=== PATIENT | male | born 1970 | race African-American/Black ===

== ENCOUNTER 2016-09-12 11:30 | Day surgery (SDC) | payer BC, MEDICARE ==
--- NOTE | ~2016-09-12 | OP ---
Record Of Operation [facility] [address] [place] [address] NAME: TACHO RAMOS JR : [id number] STATUS : [facility]#: [id number] AGE: 46 ADM/REG DATE : 09/12/16 MR#: [id number] REPORT SERV DATE: 10/07/16 DICTATED BY: EVA HERRING DATE: 10/06/16 REPORT STATUS : Draft TRANSCRIBED BY: MODL DATE: 10/06/16 DATE OF PROCEDURE: PROCEDURE PERFORMED: Fiberoptic bronchoscopy, bronchoscopy with endobronchial ultrasound, transbronchial needle aspirates of a single lymph node station with bronchoalveolar lavage. INDICATION: Adenopathy suspect suspicious for sarcoidosis. PROCEDURE IN DETAIL: After risks and benefits were explained, informed consent was obtained. The patient received general anesthesia under care of Anesthesiology with placement of an LMA artificial airway. The bronchoscope was inserted via the LMA and advanced beyond the vocal cords without difficulty. The entire bronchial tree was inspected. There were some subtle evidence of irritation with some minimal mucosal hyperemia throughout though no major focal abnormalities. Following airway inspection, we performed endobronchial ultrasound inspection which identified a large level 7 lymph node. We performed a series of transbronchial needle aspirates at the level 7 lymph node which even along with intraprocedure consultation with pathology showed what appeared to be inflammatory changes with the edge of granulomatous inflammation. We wedged the bronchoscope in the right middle lobe and right upper lobe and performed a combined bronchoalveolar lavage with good return after wedging the bronchoscope and instilling saline, which was aspirated into Lukens trap. IMPRESSION: Uneventful bronchoscopy with inflammatory changes consistent with sarcoidosis. EDY/IOANA Eva Herring M.D. / [id number] CC: Eva Herring M.D.
[~2016-09-12 11:30] MED LIST: AMLODIPINE; CARTIA; CARTIA XT180 MG/24 PO; FOSRENOL1000 MG PO; FUROSEMIDE; GLUCOTROL5 PO; HCTZ; HYDROCHLOROT25 MG PO; L40 PO; LANTUSCART SC; NORV10 PO; SIMVASTATIN; TRAN200 PO; ZOCOR40 PO
[2016-09-12 11:53] LABS: HEMOGLOBIN 11.4 g/dL (13.6-17.8)
[2016-09-12 11:54] LABS: HEMATOCRIT 35.2 % (40.0-51.0)
[2016-09-12 12:09] LABS: BUN (BLOOD UREA NITROGEN) 28 MG/DL (6-23); CALCIUM, SERUM 10.9 MG/DL (8.5-10.4); CHLORIDE, SERUM 100 MMOL/L (96-112); CO2 (CARBON DIOXIDE) 30 MMOL/L (24-34); POTASSIUM, SERUM 5.1 MMOL/L (3.5-5.3); SODIUM, SERUM 140 MMOL/L (135-148)
[2016-09-12 12:12] LABS: GFR AFRICAN AMERICAN 6 ML/MIN (>=60); GFR NON AFRICAN AMERICAN 5 ML/MIN (>=60); GLUCOSE, SERUM 103 MG/DL (60-99)
[2016-09-12 19:26] LABS: BD FL LYMPH (NOT ORD) 22 %; BD FL SOURCE (NOT ORD) BAL; BF BASO (NOT OF) 1 %; BF LARGE MONONUCLEAR 42 %; BF TOTAL CELL CT (NOT ORD 143 /MM3; BODY FLUID EOS (NOT ORD) 2 %; BODY FLUID RBC (NOT ORD) < 1000 /MM3; BODY FLUID SEG (NOT ORD) 33 %
== END 2016-09-12 22:15 | disposition home or self-care (01) ==
LOC: DMU 11:30
PROVIDERS: Anesthesiology; Internal Medicine Pulmonary Disease
PROC: 07B74ZX Excision of Thorax Lymphatic, Percutaneous Endoscopic Approach, Diagnostic (ICD-10-PCS; principal; 2016-09-12 13:00)
PROC: 0B958ZX Drainage of Right Middle Lobe Bronchus, Via Natural or Artificial Opening Endoscopic, Diagnostic (ICD-10-PCS; 2016-09-12 13:00)
DX: R59.0 Localized enlarged lymph nodes (principal); J18.9 Pneumonia, unspecified organism; E83.52 Hypercalcemia; E11.22 Type 2 diabetes mellitus with diabetic chronic kidney disease; D64.9 Anemia, unspecified; D89.0 Polyclonal hypergammaglobulinemia; I12.0 Hypertensive chronic kidney disease with stage 5 chronic kidney disease or end stage renal disease; N18.6 End stage renal disease; E78.00 Pure hypercholesterolemia, unspecified; Z82.49 Family history of ischemic heart disease and other diseases of the circulatory system; Z83.3 Family history of diabetes mellitus; Z79.899 Other long term (current) drug therapy; Z98.41 Cataract extraction status, right eye; Z98.42 Cataract extraction status, left eye; Z98.890 Other specified postprocedural states
CPT/HCPCS: 80048; 82962; 85014; 85018; 87015; 87070; 87102; 87116; 87205; 88112; 88172; 88173; 88305; 88312; 89051; 93005; A9270-GY; C1725; J2250; J2405; J3010